=== PATIENT | female | born 1990 | race Caucasian/White ===

== ENCOUNTER 2016-07-21 17:52 | Emergency (ER) | payer MEDICAID ==
[~2016-07-21] VITALS: Ht 172.7 cm; Wt 63.5 kg
[2016-07-21 18:25] VITALS: BP 116/74
[2016-07-21] MEDS ORDERED: ACETAMINOPHEN/CODEINE#3 (300/30mg) TAB PO ONE (20:45)
== END 2016-07-21 20:51 | disposition home or self-care (01) ==
LOC: ER 18:01
DX: R51 Headache (principal); L65.9 Nonscarring hair loss, unspecified; N39.0 Urinary tract infection, site not specified
CPT/HCPCS: 70450; 81025

== ENCOUNTER 2016-08-02 21:06 | Emergency (ER) | payer SELFPAY ==
[~2016-08-02] VITALS: Ht 172.7 cm; Wt 67.1 kg
[2016-08-02 22:00] LABS: Urine Bilirubin Negative (Negative); Urine Blood Negative /uL (Negative); Urine Color Yellow (Yellow); Urine Glucose Normal (Normal); Urine Ketone Negative (Negative); Urine Mucus FEW (None Seen); Urine RBC 1 /hpf (0 - 4); Urine Squamous Epithelial Cell FEW /hpf (<5); Urine Urobilinogen Normal (Negative)
[2016-08-02 22:29] LABS: Urine Nitrite POSITIVE (Negative)
[2016-08-02 23:11] LABS: Basophils # (auto) 0 uL; Eosinophils # (auto) 0 uL; Hematocrit 40.6 % (36.0-46.0); Hemoglobin 14.1 g/dL (12.2-16.2); Lymphocytes # (auto) 0.3 uL; Lymphocytes % (auto) 3.3 % (10.0-50.0); Mean Corpuscular Hemoglobin 31.1 pg (28.0-32.0); Mean Corpuscular Hgb Conc. 34.7 g/dL (32.0-36.0); Mean Corpuscular Volume 89.7 fL (80.0-100.0); Mean Platelet Volume 8.7 fL (7.4-10.4); Monocytes # (auto) 0.6 uL; Monocytes % (auto) 5.8 % (0.0-12.0); Neutrophils # (auto) 8.8 uL; Neutrophils % (auto) 90.9 % (37.0-80.0); Platelet Count (auto) 190 10^3/uL (140-450); Red Cell Distribution Width 13.5 % (11.6-16.0); White Blood Cell 9.6 10^3/uL (4.4-10.8)
[2016-08-02 23:38] LABS: Albumin 3.6 g/dL (3.4-5.0); BUN/Creatinine Ratio 20.3; Calcium 7.8 mg/dL (8.5-10.1); Potassium 3.9 mmol/L (3.5-5.1)
[2016-08-02 23:41] LABS: Bilirubin, Total 0.8 mg/dL (0.2-1.0); Total Protein 7.4 g/dL (6.4-8.2)
[2016-08-03] MEDS ORDERED: cefTRIAXone 1GM/50ML D5W 50 ML IV ONE
[2016-08-03] MEDS ORDERED: KETOROLAC TROMETH 30 MG/ML 1ML VIAL IV ONE
[2016-08-03] MEDS ORDERED: SODIUM CHLORIDE 0.9% 1,000 ML IV ONE ×2 (04:00)
[2016-08-03 04:58] VITALS: BP 110/59
== END 2016-08-03 05:08 | disposition home or self-care (01) ==
LOC: ER 21:13
DX: S09.90XA Unspecified injury of head, initial encounter (principal); N39.0 Urinary tract infection, site not specified; W22.8XXA Striking against or struck by other objects, initial encounter; Y93.89 Activity, other specified; Y92.89 Other specified places as the place of occurrence of the external cause; Y99.8 Other external cause status
CPT/HCPCS: 36415; 70450; 71010; 80053; 81001; 81025; 82150; 83690; 85025; 96361; 96365; 96375; 99285; J0696; J1885